=== PATIENT | female | born 1965 | race Caucasian/White ===

== ENCOUNTER 2016-05-02 08:10 | Emergency (ER) | payer OTHER ==
[2016-05-02] MEDS ORDERED: NS 1,000 ML IV ONE (08:27)
[2016-05-02] MEDS ORDERED: DEXAMETHASONE 10 MG/ML VIAL IVP ONE (08:30)
[2016-05-02] MEDS ORDERED: METOCLOPRAMIDE 10 MG/2 ML VIAL IVP ONE (08:30)
[2016-05-02] MEDS ORDERED: KETOROLAC 30 MG/1 ML SDV IVP ONE (08:30)
--- NOTE | 2016-05-02 08:37 | EDPHY ---
H & P Stated Complaint: migraine 48 hrs not responding to imitrrex Time Seen by Provider: 05/02/16 08:21 HPI/ROS: CHIEF COMPLAINT: Headache HISTORY OF PRESENT ILLNESS: The patient is a 50 year old female with long standing history of migraines, presenting with headache that started 3 days ago. Her headache is localized behind the eyes. She has associated nausea, no vomiting. Her symptoms are similar to previous migraines. She took Imitrex and found some relief. She also took some left over morphine which she states calmed her down. The patient was referred to a neurologist and is scheduled to have a MRI brain. She denies vision changes. No weakness or numbness in her lower extremities. No recent trauma. She has recently had frequent UTIs, she denies dysuria but notes dark colored urine. REVIEW OF SYSTEMS: Aside from elements discussed in the HPI, a comprehensive 10-point review of systems was reviewed and is negative. PAST MEDICAL HISTORY: HERPES, HYSTERECTOMY, C- SECTION X3, BREAST IMPLANT, Migraines, asthma, hypothyroidism. SOCIAL HISTORY: Lives in [place]. VITAL SIGNS Reviewed by me. GENERAL: Well-developed, well-nourished, resting in a dark room. HEENT: Atraumatic. Eyes: PERRL, EOMI, no nystagmus. No icterus. No injection. Mouth: dry mucous membranes. No erythema or lesions. Neck: No meningitis. Nontender to palpation. No adenopathy. LUNGS: Clear to auscultation bilaterally, no wheezes, rhonchi or rales. CARDIAC: Regular rate and rhythm, no rubs, murmurs or gallops. ABDOMEN: Soft, nontender, nondistended, bowel sounds normal. BACK: No CVA tenderness. EXTREMITIES: No trauma. No edema. Range of motion is normal throughout. NEURO: Alert and oriented, cranial nerves II through XII are intact. Motor strength 5 over 5 in all major muscle groups. Sensation intact to light touch. SKIN: Warm and dry, no rash. PSYCHIATRIC: Normal mentation, no agitation. Portions of this note were transcribed by a medical librarian. I personally performed a history, physical exam, medical decision making, and confirmed accuracy of information the transcribed note. - Personal History LMP (Females 10-55): Hysterectomy Current Tetanus/Diphtheria Vaccine: Yes - Medical/Surgical History Hx Asthma: Yes Hx Chronic Respiratory Disease: No Hx Diabetes: No Hx Cardiac Disease: No Hx Renal Disease: No Hx Cirrhosis: No Hx Alcoholism: No Hx HIV/AIDS: No Hx Splenectomy or Spleen Trauma: No Other PMH: HERPES, HYSTERECTOMY, C- SECTION X3, BREAST IMPLANT, Migraines, asthma, hypothyroidism. - Social History Smoking Status: Never smoked Constitutional: Initial Vital Signs Temperature (C) 36.6 C 05/02/16 08:13 Heart Rate 82 05/02/16 08:13 Respiratory Rate 17 05/02/16 08:13 Blood Pressure 135/99 H 05/02/16 08:13 O2 Sat (%) 98 05/02/16 08:13 O2 Delivery Mode Room Air Allergies/Adverse Reactions: Iodinated Contrast Media - Oral and [IV Dye, Iodine Containing] Allergy (Severe , Verified 05/02/16 08:12) STOPS BREATHING Home Medications: Medication Instructions Recorded Sumatriptan 01/17/16 Synthroid 01/17/16 morphINE 05/02/16 oxyCODONE/APAP 5/325 [Percocet 1 - 2 tab PO QID PRN #10 tab 05/02/16 5/325 (*)] Medical Decision Making ED Course/Re-evaluation: IV was established. Patient was started on fluids. Plan for headache cocktail. 0930: I reevaluated the patient. Her headache has improved, but she still has some pain. 1000: I offered MRI or CT imaging of brain here. Patient declines, she would rather do it as an outpatient. She is feeling better. I will discharge her home with Percocet for residual pain. Differential Diagnosis: After history was obtained, and the physical exam performed, a differential for headache was considered including, but not limited to, subarachnoid hemorrhage, migraine headache, tension headache and infectious causes such as meningitis, sinusitis, encephalitis. - Data Points Medications Given: Discontinued Medications Dexamethasone (Decadron Injection) 10 mg IVP EDNOW ONE Stop: 05/02/16 08:31 Last Admin: 05/02/16 08:35 Dose: 10 mg Diphenhydramine HCl (Benadryl Injection) 25 mg IVP EDNOW ONE Stop: 05/02/16 08:31 Last Admin: 05/02/16 08:35 Dose: 25 mg Hydromorphone HCl (Dilaudid) 1 mg IVP EDNOW ONE Stop: 05/02/16 09:31 Last Admin: 05/02/16 09:47 Dose: 1 mg Sodium Chloride (Ns) 1,000 mls @ 0 mls/hr IV ONCE ONE PRN Reason: Wide Open Stop: 05/02/16 08:28 Last Admin: 05/02/16 08:35 Dose: 1,000 mls Ketorolac Tromethamine (Toradol) 30 mg IVP EDNOW ONE Stop: 05/02/16 08:31 Last Admin: 05/02/16 08:35 Dose: 30 mg Metoclopramide HCl (Reglan Injection) 10 mg IVP EDNOW ONE Stop: 05/02/16 08:31 Last Admin: 05/02/16 08:35 Dose: 10 mg Departure - Departure Disposition: Home, Routine, Self-Care Clinical Impression: Migraine Qualifiers: Migraine type: without aura Status migrainosus presence: without status migrainosus Intractability: not intractable Qualifier Code: (G43.009) Migraine without aura, not intractable, without status migrainosus Condition: Good Instructions: Migraine Headache (ED) Additional Instructions: I recommend Ibuprofen (Motrin, Advil) or Naproxen Sodium (Aleve) for pain and anti-inflammatory effects. You may take either one, but do not take both. Your dose is: Ibuprofen 600 mg every 6-8 hours with food. OR Naproxen Sodium (Aleve) 220 mg every 12 hours. Take Percocet as prescribed for residual pain. Followup with your primary care physician to schedule outpatient MRI. Referrals: Leonel Kim MD [Primary Care Provider] - As per Instructions Prescriptions: oxyCODONE/APAP 5/325 [Percocet 5/325 (*)] 1 - 2 tab PO QID PRN #10 tab PRN Reason: Pain Report Scribed for: Shari Benavides Report Scribed by: Florence Cruz Date of Report: 05/02/16 Time of Report: 08:41
[2016-05-02] MEDS ORDERED: METOCLOPRAMIDE 10 MG/2 ML VIAL ONE (09:07)
[2016-05-02] MEDS ORDERED: DEXAMETHASONE 10 MG/ML VIAL ONE (09:07)
[2016-05-02] MEDS ORDERED: HYDROmorphONE/DILAUDID 1 MG/ML SYR IVP ONE (09:30)
[2016-05-02 11:17] VITALS: BP 97/59; PULSE 68; RESP 18; TEMP 98.4; O2SAT 96
== END 2016-05-02 11:15 | disposition home or self-care (01) ==
DX: G43.009 Migraine without aura, not intractable, without status migrainosus (principal); J45.909 Unspecified asthma, uncomplicated
CPT/HCPCS: 96374; J1170; J1200; J1885; J2765

== ENCOUNTER → 2018-03-27 | Outpatient (CLI) | payer OTHER | LOC: FIMAGING 14:18 | PROVIDERS: ATTEND Family Medicine | DX: R10.0 Acute abdomen (principal) ==

== ENCOUNTER 2018-03-28 11:14 | Emergency (ER) | payer OTHER ==
--- NOTE | 2018-03-28 14:24 | EDPHY ---
HPI/HX/ROS/PE/MDM Narrative: CLINICAL IMPRESSION: Diverticulitis ASSESSMENT/PLAN: 52-year-old female sent to the emergency department by her primary care after she reportedly had abnormal labs drawn yesterday. Patient reports a 3-4 day history generalized abdominal discomfort associated with mild nausea. No reported fevers, chills, vomiting, diarrhea or change in bowel habits. She saw her PCP yesterday, had labs and a normal abdominal x-ray. She tried enema and stool softeners last night with good evacuation of stool but persistent abdominal pain. Vital signs stable, afebrile. Review of labs yesterday show a very mild leukocytosis of just over 10 with no left shift, normal renal function , no transaminitis, and a elevated CRP of 24. X-rays of the abdomen show unremarkable bowel gas pattern with no evidence of SBO. Patient has anaphylaxis to iodine contrast and therefore a noncontrast CT scan was obtained. This was read by Radiology as suggestive of possible diverticulitis at the hepatic flexure. Patient does not present with peritoneal findings, and does not appear septic or toxic. Discussed with Dr. Jarrett. Will plan to treat outpatient with Flagyl and Cipro, encouraged PCP follow-up in 24 hr. Low threshold for return to ED sooner as outlined and discharge papers. DIFFERENTIAL DX: Abdominal pain includes but not limited to urinary tract infection, pyelonephritis, infection, acute appendicitis, acute diverticulitis, small- bowel obstruction, constipation ED PROCEDURES: See lab and imaging results below ED COURSE: CT scan discussed with Dr. Garrett at 2:20 p.m.: Findings consistent with diffuse mesenteric inflammation and diverticula in the hepatic flexure, possibly due to diverticulitis. Discussed with Dr. Jarrett. Will plan to treat with antibiotics for outpatient diverticulitis. CHIEF COMPLAINT: Abdominal pain HPI: 52-year-old female presents to the emergency department by request of her primary care provider Dr. Kim for evaluation of abnormal lab findings and abdominal pain. Patient reports a 3-4 day history of abdominal pain, generalized in nature, associated with mild nausea. She saw her PCP yesterday ordered labs and an x-ray of the abdomen. He also advised that she do an enema and Dulcolax suppositories which she did last night. Patient did evacuate stool but states that her abdominal pain persisted. No reported fever or chills. She has had a total hysterectomy and oophorectomy secondary to severe fibroids. No history of SBO. No travel outside the [place] Recently or recent antibiotics or new medications. No dysuria, UTI symptoms or flank pain. No abnormal vaginal bleeding or symptoms. No chest pain or shortness of breath. She has not been trying anything for her pain at home and reports that she has a very high pain tolerance. PMH: See triage summary for full details. Pertinent Past Surgical History: Prior total hysterectomy and bilateral oophorectomy Family History: Noncontributory Social History: Nonsmoker, otherwise healthy, anaphylaxis to iodine contrast REVIEW OF SYSTEMS: All other systems negative Constitutional: No fever, no chills, positive for appetite change. Cardiovascular: No chest pain, no palpitations. Respiratory: No cough, no shortness of breath. Gastrointestinal: Positive for abdominal pain, no vomiting, diarrhea. Genitourinary: No hematuria, dysuria, flank pain, pelvic pain Musculoskeletal: No back pain, joint swelling, joint pain, myalgias. Skin: No rashes, color change. Neurological: No headache, dizziness, weakness. PHYSICAL EXAM: General ApOropharynx clear is no erythema or exudates, no tonsillar hypertrophy or asymmetry. Dentition without abnormality.] Neck: Supple, nontender, no lymphadenopathy, no midline pain, FROM, no meningismus. Respiratory: There are no retractions, lungs are clear to auscultation. Cardiac: Regular rate and rhythm, no murmurs or gallops. Gastrointestinal: Abdomen is soft, generalized tenderness throughout, bowel sounds hypoactive no masses/hernia, no rigidity, guarding or focal peritoneal findings. Neurological: Alert and oriented x 3, CN 2-12 grossly intact Skin: Warm, dry, no rashes, no nodules on palpation. Musculoskeletal: Extremities are symmetrical, full range of motion, no tenderness, deformity, swelling, or erythema. MEDICAL DECISION MAKING: Patient was seen independently. Secondary supervising physician at time of evaluation was Dr. Jarrett. Diagnosis: Diverticulitis. New, requires workup Summary: See Assessment and Plan for summary of ED visit Clinical lab tests: ordered / reviewed. Independent visualization of images, tracing, or specimens: Yes. Review / Summarize previous medical records: Reviewed records from primary care office Discussed patient with another provider: Radiology, Dr. Jarrett Patient Progress: Stable. - Data Points Imaging Results: Imaging Impressions Abdomen/Pelvis CT 03/28/18 12:58 Impression: 1. Thickening and mesenteric inflammation associated with diverticula in the hepatic flexure, most likely related to diverticulitis. Please ensure the patient is current with colonoscopy screening. 2. Additional findings as above. Findings discussed with Vincenzo Del Cid on 03/28/2018 at 14:12. Attention: This CT examination is specifically designed to evaluate patients who are clinically suspected of having acute obstructive uropathy. This examination does not use radiographic contrast and provides only a limited evaluation of the abdomen, pelvis and retroperitoneum. If there is further clinical suspicion for pathological conditions other than obstructive uropathy, a complete CT evaluation of the abdomen and pelvis utilizing intravenous and enteric contrast should be considered. General Time Seen by Provider: 03/28/18 12:36 Initial Vital Signs: Initial Vital Signs Temperature (C) 36.9 C 03/28/18 11:25 Heart Rate 77 03/28/18 11:25 Respiratory Rate 16 03/28/18 11:25 Blood Pressure 115/72 03/28/18 11:25 O2 Sat (%) 97 03/28/18 11:25 O2 Delivery Mode Room Air Allergies/Adverse Reactions: Iodinated Contrast- Oral and IV Dye [IV Dye, Iodine Containing] Allergy (Severe , Verified 03/28/18 11:23) STOPS BREATHING Home Medications: Medication Instructions Recorded Synthroid 01/17/16 Ciprofloxacin [Cipro 500 mg] 500 mg PO BID #20 tab 03/28/18 metroNIDAZOLE [Flagyl 500 mg (*)] 500 mg PO BID #20 tab 03/28/18 Departure - Departure Disposition: Home, Routine, Self-Care Clinical Impression: Diverticulitis Condition: Good Instructions: Diverticulitis (ED) Additional Instructions: DISCHARGE INSTRUCTIONS FROM YOUR DOCTOR Thank you for visiting our emergency department today. Please keep in mind that discharge from the emergency department does not mean that there is nothing wrong - it simply means that we have not identified an emergency condition that requires further evaluation or treatment in the hospital. You should always plan to follow up with primary care for re-evaluation of your condition in the next 2-3 days. If you have been referred to a specialist, please call as soon as possible (today or tomorrow) to schedule your follow up appointment at the appropriate time. We are treating you for diverticulitis based on CT findings today. There does no appear to be any surgical complication. However CT without contrast limits our view. Please make a follow-up appointment tomorrow with her primary care doctor to recheck. you did receive an initial dose of antibiotics in the ER and a prescription was provided. Please monitor symptoms closely at home and return to the emergency department for worsening abdominal pain, abdominal distention, inability to pass stool or gas, vomiting, fever, inability to keep down medications, or any other concerns. People present with illnesses and injuries in different ways, and it is always possible that we have missed something. You may always return for re-evaluation if symptoms worsen or if they are not improving or if you develop new/different symptoms. Again, thank you for choosing our emergency department. We hope that you feel better. Referrals: Leonel Kim MD [Primary Care Provider] - 1 day without fail Prescriptions: Ciprofloxacin [Cipro 500 mg] 500 mg PO BID #20 tab metroNIDAZOLE [Flagyl 500 mg (*)] 500 mg PO BID #20 tab
[2018-03-28] MEDS ORDERED: metroNIDAZOLE 500 MG TAB PO ONE (15:01)
[2018-03-28] MEDS ORDERED: CIPROFLOXACIN 500 MG TAB PO ONE (15:01)
[2018-03-28 15:39] VITALS: BP 122/78
== END 2018-03-28 15:39 | disposition home or self-care (01) ==
DX: K57.32 Diverticulitis of large intestine without perforation or abscess without bleeding (principal); Z91.041 Radiographic dye allergy status